=== PATIENT | male | born 2000 | race Caucasian/White ===

== ENCOUNTER 2019-01-20 00:48 | Inpatient (IN) ==
[2019-01-20] MEDS ORDERED: *HR* LORazepam 1 MG TABLET PO PRN (05:14)
[2019-01-20] MEDS ORDERED: *HR* LORazepam 2 MG/ML VIAL IM PRN (05:14)
[2019-01-20] MEDS ORDERED: MOM Conc 10 ML UD.LIQ PO PRN (05:14)
[2019-01-20] MEDS ORDERED: Mag Hydrox/Al Hydrox/Simeth 30 ML UDC PO PRN (05:14)
[2019-01-20] MEDS ORDERED: Haloperidol Lactate 5 MG/ML VIAL IM PRN (05:14)
[2019-01-20] MEDS ORDERED: Acetaminophen 325 MG TABLET PO PRN (05:14)
[2019-01-20] MEDS: traZODone 50 MG TABLET PO PRN (23:44)
[2019-01-20] MEDS: hydrOXYzine pamoate 25 MG CAPSULE PO PRN (23:44)
[2019-01-21] MEDS: hydrOXYzine pamoate 25 MG CAPSULE PO PRN ×3 (12:23→23:14)
[2019-01-21] MEDS: traZODone 50 MG TABLET PO PRN (23:14)
[2019-01-22] MEDS: hydrOXYzine pamoate 25 MG CAPSULE PO PRN ×2 (13:31→22:36)
[2019-01-22] MEDS: traZODone 50 MG TABLET PO PRN (22:36)
[2019-01-23] MEDS: hydrOXYzine pamoate 25 MG CAPSULE PO PRN (19:50)
[2019-01-23] MEDS: traZODone 50 MG TABLET PO PRN (22:10)
[2019-01-24] MEDS: hydrOXYzine pamoate 25 MG CAPSULE PO PRN (22:53)
[2019-01-24] MEDS: traZODone 50 MG TABLET PO PRN (22:53)
[2019-01-25 09:05] VITALS: BP 135/87
== END 2019-01-25 11:42 | disposition home or self-care (01) | DRG 885 ==
LOC: 1ANU 00:48 → SUATTDRO 00:48
PROVIDERS: ADMIT Psychiatry & Neurology Psychiatry; ATTEND Psychiatry & Neurology Psychiatry